=== PATIENT | male | born 1980 | race Caucasian/White ===

== ENCOUNTER 2023-01-06 16:08 | Outpatient (REF) | payer MEDICAID, SELFPAY ==
[2023-01-06 17:00] LABS: Abs Immature Grans 0.02 10^3/uL (0.0-0.06); Absolute Basophil Count 0.03 10^3/uL (0.0-0.2); Absolute Eosinophil Count 0.13 10^3/uL (0.0-0.7); Absolute Lymphocyte Count 2.21 10^3/uL (1.2-3.4); Absolute Neutrophil Count 6.06 10^3/uL (1.2-6.7); Basophils % 0.3; Eosinophils % 1.4; HCT 49.1 % (40.0-50.0); HGB 16.9 g/dL (13.5-17.5); Immature Grans % 0.2; Lymphocytes % 23.6; MCH 31.1 pg (27.0-33.0); MCHC 34.4 % (32.0-36.0); MCV 90 fL (80-95); MPV 9.8 fL (8.0-11.0); Monocytes % 9.6; Neutrophils % 64.9; Platelet Count 327 10^3/uL (130-400); RBC 5.44 10^6/uL (4.36-5.78); RDW 12.6 % (11.8-14.1); RDW-SD 41.4 fL; WBC 9.35 10^3/uL (4.4-10.8)
[2023-01-06 17:38] LABS: ALT 38 U/L (16-63); AST 25 U/L (15-37); Albumin 4.1 g/dL (3.4-5.0); Alkaline Phosphatase 80 U/L (46-116); Anion Gap 9.3 mmol/L (3-11); BUN 17 mg/dL (7-18); Bilirubin, Total 0.3 mg/dL (0.2-1.0); CO2 28.7 mmol/L (21.0-32.0); CREATININE 0.9 mg/dL (0.70-1.30); Calcium 10.2 mg/dL (8.5-10.1); Calculated LDL 162 mg/dL (<100); Chloride 105 mmol/L (98-107); Cholesterol 252 mg/dL (<200); Estimated GFR 110.73 (mL/min/1.73m2); Glucose 108 mg/dL (74-106); HDL Cholesterol 56 mg/dL (40-60); Potassium 4.3 mmol/L (3.5-5.1); Sodium 143 mmol/L (136-145); TSH (W/Ref FT4) 0.92 uIU/mL (0.36-3.74); Total Protein 7.6 g/dL (6.4-8.2); Triglyceride 172 mg/dL (<150)
== END 2023-01-06 16:09 | disposition home or self-care (01) ==
LOC: NCHCN 16:08
PROVIDERS: Visit Provider Nurse Practitioner Family
DX: F17.201 Nicotine dependence, unspecified, in remission (principal); N52.9 Male erectile dysfunction, unspecified; Z13.1 Encounter for screening for diabetes mellitus; Z13.220 Encounter for screening for lipoid disorders; Z13.29 Encounter for screening for other suspected endocrine disorder
CPT/HCPCS: 80053; 80061; 84443; 85025

== ENCOUNTER 2024-05-16 17:32 | Outpatient (CLI) | payer MEDICAID, SELFPAY ==
--- NOTE | 2024-05-16 | DI.RAD_ITS ---
Exam(s) XR CHEST 2V PA LATERAL EXAM: XR CHEST 2V PA LATERAL CLINICAL HISTORY: J18.9 Pneumonia. TECHNIQUE: 2D digital imaging was performed. COMPARISON: No exams were available for comparison FINDINGS: 2 views: Heart size is normal. The mediastinum is not widened. There is significant infiltrate in the right middle lobe. Also possible milder infiltrate in the rig ht upper lobe and left lower lobe retrocardiac region. There are no pleural effusions. No osseous findings. IMPRESSION: Right middle lobe infiltrate. Possible mild infiltrate also right upper lobe and left lower lobe. There are no pleural effusions. DATA REPOSITORY: RADIATION DOSE DELIVERED:
== END 2024-05-16 17:52 ==
LOC: DI 17:32
PROVIDERS: Visit Provider Family Medicine
DX: J18.9 Pneumonia, unspecified organism (principal)
CPT/HCPCS: 71046